=== PATIENT | male | born 1970 ===

== ENCOUNTER 2018-10-12 06:15 | Day surgery (SDC) | payer MEDICARE, OTHER ==
[~2018-10-12] VITALS: Ht 190.5 cm; Wt 129.3 kg
[2018-10-12] VITALS (9 sets, daily range): BP systolic 140–160; BP diastolic 77–91
[~2018-10-12 06:15] MED LIST: ALBUTEROL SULF8.5 GM INH
[2018-10-12] MEDS ORDERED: fentaNYL 100 mcg/2 mL IV ONE (07:00)
[2018-10-12] MEDS ORDERED: Midazolam 2mg/2ml Inj ONE (07:01)
[2018-10-12] MEDS ORDERED: Propofol 200mg/20ml IV ONE (07:01)
[2018-10-12] MEDS ORDERED: NS Irrig 1000ml IRRIG ONE ×2 (07:04→07:50)
--- NOTE | 2018-10-12 07:24 | Consultation ---
History of Present Illness General Date patient seen: Oct 12, 2018 Present Illness HPI 48M referred to me for evaluation of abnormal mass x 3. Patient c/o draining mass on mid upper back, pelvic, and left axilla. States had back left mid cyst with drainage for over 10 years. has had prior infection and recurrs every so often. also for past 1 year has had anterior pelvic abd wall 1cm ulcer with drainage. has been to ED prior for discomfort and purulent drainage from this. also left axilla small 1cm draining cyst. is ready to have them removed. Allergies: Coded Allergies: PENICILLINS (Verified Adverse Reaction, Intermediate, "swells-up"; "can't breath", 10/11/18) Medication History Scheduled PRN Albuterol Sulfate* (Albuterol Sulfate Mdi*), 2 PUFF INH PRN PRN for Shortness of Breath, (Reported) Patient History History Provided By: Patient Healthcare decision maker Resuscitation status Advanced Directive on File Past Medical/Surgical History Past Medical/Surgical History: (1) Palpable mass of lower back (2) Pelvic mass in male (3) Mass of left axilla Review of Systems Review of Symptoms General ROS: no weight loss or fever Psychological ROS: no depression or mood changes, no memory loss Ophthalmic ROS: no visual changes or eye irritation ENT ROS: no nasal congestion, hearing loss, dizziness Allergy and Immunology ROS: no allergic symptoms or urticaria Hematological and Lymphatic ROS: no swollen glands, unusual bleeding or bruising Endocrine ROS: no polyuria, polydipsia, weight changes, temperature intolerance Respiratory ROS: no cough, shortness of breath, or wheezing Cardiovascular ROS: no chest pain or dyspnea on exertion Gastrointestinal ROS: denies abdominal pain, no bright red blood in stool. Musculoskeletal ROS: no myalgias or arthralgias Neurological ROS: no TIA or stroke symptoms Dermatological ROS: no new or changing skin lesions, rashes or pruritis Physical Exam Physical Exam General appearance: alert, cooperative, no distress, appears stated age Head: Normocephalic, without obvious abnormality, atraumatic Eyes: conjunctivae/corneas clear. PERRL, EOM's intact. Fundi benign Throat: Lips, mucosa, and tongue normal. Teeth and gums normal Neck: supple, symmetrical, trachea midline, no adenopathy, thyroid: not enlarged, symmetric, no tenderness/mass/nodules, no carotid bruit and no JVD Lungs: clear to auscultation bilaterally Heart: regular rate and rhythm, S1, S2 normal, no murmur, click, rub or gallop Abdomen: soft, non-tender. Bowel sounds normal. No masses, no organomegaly Extremities: extremities normal, atraumatic, no cyanosis or edema Pulses: 2+ and symmetric Skin: Skin color, texture, turgor normal. No rashes or lesions Neurologic: Grossly normal Last 24 Hour Vital Signs Date Time Temp Pulse Resp B/P (MAP) Pulse Ox O2 Delivery O2 Flow Rate FiO2 10/12/18 06:45 Room Air 10/12/18 06:38 97.8 69 18 157/78 96 Room Air Height (Feet): 6 Height (Inches): 3.00 Weight (Pounds): 285 Assessment/Plan Problem List: (1) Pelvic mass in male ICD Codes: R19.00 - Intra-abdominal and pelvic swelling, mass and lump, unspecified site SNOMED: 94240955 (2) Mass of left axilla ICD Codes: R22.32 - Localized swelling, mass and lump, left upper limb SNOMED: 563648779 (3) Palpable mass of lower back ICD Codes: R22.2 - Localized swelling, mass and lump, trunk SNOMED: 435812204 Status: stable Assessment/Plan: plan for excision of mass x 3 today npo iv fluids pre op abx consent Prem Young Oct 12, 2018 07:24
[2018-10-12] MEDS ORDERED: Vancomycin 1gm vial IVPB ONE (07:25)
--- NOTE | 2018-10-12 07:25 | Pre-Procedure Note/Attestation ---
Pre-Procedure Note/Attestation Complete Prior to Procedure Procedure Narrative: excision of back mass, excision of pelvic anterior abdominal wall mass, excision of left axilla mass Indications for Procedure Pre-Operative Diagnosis: back mass,pelvic anterior abdominal wall mass, left axilla mass Attestation I attest that I discussed the nature of the procedure; its benefits; risks and complications; and alternatives (and the risks and benefits of such alternatives ), prior to the procedure, with the patient (or the patient's legal sales and marketing representative). I attest that, if there was a reasonable possibility of needing a blood transfusion, the patient (or the patient's legal sales and marketing representative) was given the [place] [employer] standardized written summary, pursuant to the [place] Blood Safety Act ([place] Health and Safety Code # 1645, as amended). I attest that I re-evaluated the patient just prior to the surgery and that there has been no change in the patient's H&P, except as documented below: Prem Young Oct 12, 2018 07:25
[2018-10-12] MEDS ORDERED: Sterile Water Irrig 1000ml IRRIG ONE (07:30)
[2018-10-12] MEDS ORDERED: Vancomycin 1 GM in D5W 275 ML IVPB ONE (07:30)
[2018-10-12] MEDS ORDERED: LR 1000ml ONE (07:30)
--- NOTE | 2018-10-12 07:36 | Anethesia Preoperative Eval ---
Anesthesia Pre-op PMH/ROS General Date of Evaluation: Oct 12, 2018 Time of Evaluation: 07:32 Anesthesiologist: Lroi ASA Score: ASA 2 Mallampati Score Class I : Soft palate, uvula, fauces, pillars visible Class II: Soft palate, uvula, fauces visible Class III: Soft palate, base of uvula visible Class IV: Only hard plate visible Mallampati Classification: Class II Surgeon: Denisha Diagnosis: Subcutaneous masses Surgical Procedure: Excision of subcutaneous masses Anesthesia History: none Family History: no anesthesia problems Allergies: Coded Allergies: PENICILLINS (Verified Adverse Reaction, Intermediate, "swells-up"; "can't breath", 10/11/18) Medications: see eMAR Patient NPO?: Yes Past Medical History Cardiovascular: Reports: HTN - borderine; Denies: CAD, [place], valve dz, arrhythmia, other Pulmonary: Denies: asthma, COPD, PIYUSH, other Gastrointestinal/Genitourinary: Reports: GERD; Denies: CRI, ESRD, other Neurologic/Psychiatric: Denies: dementia, CVA, depression/anxiety, TIA, other Endocrine: Reports: DM - borderline H1C up; Denies: hypothyroidism, steroids, other HEENT: Denies: cataract (L), cataract (R), glaucoma, [place] (L), [place] (R), other Hematology/Immune: Denies: anemia, DVT, bleeding disorder, other Musculoskeletal/Integumentary: Denies: OA, RA, DJD, DDD, edema, other Other: obesity PMH Narrative: as above PSxH Narrative: Skin graft L hand Anesthesia Pre-op Phys. Exam Physician Exam Last Vital Signs Date Time Temp Pulse Resp B/P (MAP) Pulse Ox O2 Delivery O2 Flow Rate FiO2 10/12/18 06:45 Room Air 10/12/18 06:38 97.8 69 18 157/78 96 Constitutional: NAD Neurologic: CN 2-12 intact Cardiovascular: RRR, no M/R/G Respiratory: CTA Gastrointestinal: S/NT/ND Airway Exam Mallampati Score: Class II MO: full Neck: flesible ROM: full Teeth: missing Dentures: no upper, no lower Anesthesia Pre-op A/P Labs see chart Studies Pre-op Studies: EKG - NS Risk Assessment & Plan Assessment: ASA 2 Plan: MAC Status Change Before Surgery: No Pre-Antibiotics Drug: Vancomycin 1gr. Given Within 1 Hr of Incision: Yes Time Given: 07:56 Pascual Sandoval MD Oct 12, 2018 07:36
[2018-10-12] MEDS ORDERED: LR 1000ml 1,000 ML IVLG SCH (08:11)
[2018-10-12] MEDS ORDERED: Ketorolac 30mg Inj IV PRN (08:15)
[2018-10-12] MEDS ORDERED: Meperidine 50mg/ml Inj(FOR RIGORS ONLY) IV PRN (08:15)
[2018-10-12] MEDS ORDERED: Bacitracin Oint 15gm Tube TOPIC ONE (08:31)
--- NOTE | 2018-10-12 09:16 | Brief Operative Note ---
Immediate Post Operative Note Operative Note Pre-op Diagnosis: back mass,pelvic anterior abdominal wall mass, left axilla mass Procedure: excision of mass x 3 with adjacent tissue transfer for complex closure Post-op Diagnosis: same as pre-op Surgeon: jessica Anesthesiologist: aleksandra Anesthesia: local, MAC Specimen: yes Complications: none Condition: stable Fluids: see records Estimated Blood Loss: minimal Drains: none Implant(s) used?: No Prem Young Oct 12, 2018 09:16
--- NOTE | 2018-10-12 09:19 | Immediate Post-Op Evaluation ---
Immediate Post-Op Evalulation Immediate Post-Op Evalulation Procedure: excision of subcutaneous masses brandan, lower abdomen, L lucy Date of Evaluation: Oct 12, 2018 Time of Evaluation: 09:18 IV Fluids: 800 Blood Products: none Estimated Blood Loss: min Urinary Output: none Blood Pressure Systolic: 153 Blood Pressure Diastolic: 84 Pulse Rate: 62 Respiratory Rate: 20 O2 Sat by Pulse Oximetry: 98 Temperature (Fahrenheit): 97.6 Pain Score (1-10): 1 Nausea: No Vomiting: No Complications none Patient Status: awake, patent, none Hydration Status: adequate Pascual Sandoval MD Oct 12, 2018 09:19
[2018-10-12] MEDS ORDERED: HYDROcodone/Acetamin 5/325 tab ORAL PRN (09:30)
[2018-10-12] MEDS ORDERED: Tylenol #3 tab (300mg/30mg) ORAL PRN (09:30)
[2018-10-12] MEDS ORDERED: HYDROmorphone 1mg/ml Carpuject SUBQ PRN (09:30)
[2018-10-12] MEDS ORDERED: D5 1/2NS 1,000 ML IV SCH (12:00)
--- NOTE | 2018-10-12 16:30 | Operative Note - Dictated ---
DATE OF OPERATION: 10/12/2018 PREOPERATIVE DIAGNOSES: 1. Left mid back 3 cm x 3 cm mass. 2. Pelvic anterior abdominal wall mass 4 cm x 2 cm. 3. Left axillary mass 2 cm x 2 cm. POSTOPERATIVE DIAGNOSES: 1. Left mid back 3 cm x 3 cm mass. 2. Pelvic anterior abdominal wall mass 4 cm x 2 cm. 3. Left axillary mass 2 cm x 2 cm. OPERATION PERFORMED: 1. Excision of left mid back mass 3 cm x 3 cm x 3 cm with localized adjacent tissue transfer with use of flaps to close the defect. 2. Pelvic anterior abdominal wall mass excision 4 cm x 2 cm x 2 cm with localized adjacent tissue transfer with use of flaps to close defect. 3. Excision of left axillary mass 2 cm x 2 cm x 2 cm with localized adjacent tissue transfer. Use of flaps for closure of defect. ATTENDING SURGEON: Prem Young M.D. OPTICAL LATHE OPERATOR: None. ANESTHESIOLOGIST: Pascual Sandoval M.D. ANESTHESIA: Local plus MAC. SPECIMENS: Yes x3 as above. COMPLICATIONS: None. DRAINS: None. COUNTS: Sponge and needle count correct x2. WOUND CLASSIFICATION: Class 1. ANTIBIOTICS: Vancomycin 1 g given 1 hour prior to cut time. IMPLANTS: None. INDICATIONS FOR PROCEDURE: This is a 48-year-old male who was referred to my office for evaluation of multiple masses that have been draining for sometime now. The patient states that he has had a midback mass for greater than 10 years that has intermittently been infected throughout the years and currently is causing him discomfort and drains intermittently. He states that he has to drain it himself occasionally and requests excision. Furthermore, the patient was identified to have an anterior abdominal wall pelvic right side ulceration with drainage that he said has been going on for some time now as well as a left axillary mass that has drainage. All 3 cause him discomfort, social anxiety, and have been infected in the past with drainage and therefore excision is indicated and recommended. Risks, benefits, and alternatives were discussed in detail with the patient including potential risk for infection at all wound sites and the patient expressed understanding and consented to surgery. OPERATIVE NOTE: The patient was scheduled for surgery on 10/12/2018. The patient was taken to the operating room and placed on the operating table in the prone position. The mid back was prepped and draped in standard surgical fashion. Local anesthetic was infiltrated for the patient's comfort. MAC sedation was given by the anesthesiologist for the patient's comfort as well. The area of the cystic mass was identified and an elliptical incision was made around the mass. The mass was excised in whole including its capsule and sent to pathology for review. Mass likely noted to be a sebaceous cyst. Following this, the wound bed was irrigated and cleansed. Given the size of the defect and location, adjacent tissue transfer was necessary for appropriate closure. The localized tissue in the superior and lateral aspect were mobilized using electrocautery and flapped over to the side of the defect and reapproximated using 3-0 Vicryl sutures. The skin incision was then closed in a two-layer fashion beginning with a 3-0 Vicryl followed by 4-0 Monocryl subcuticular suture. Following this, the patient was placed in the supine position and the left axilla and lower pelvic region prepped and draped in the standard surgical fashion. In a similar fashion, an elliptical incision was made around the draining ulcer wound in the right lower anterior abdominal wall pelvis area. Elliptical incision was made and carried through the dermis to the subcutaneous tissue with electrocautery. The draining defect was noted to be tunneling inferiorly and tunneling tract was completely excised. Once the lesion was removed, it was sent to pathology for review. The remaining wound bed was irrigated and suctioned. Local anesthetic was infiltrated. Then given the location and size, adjacent tissue transfer was necessary for appropriate closure and superior and medial flaps and tissue remained brought into the defect site and reapproximated using 3-0 Vicryl sutures. The skin incision was then reapproximated using 3-0 Vicryl dermal sutures followed by 4-0 Monocryl subcuticular running suture. Following this, attention was turned to the left axilla. Local anesthetic was infiltrated and an elliptical incision was made around the mass and carried down to subcutaneous tissue with electrocautery and the mass excised in full. This is noted to be likely dermal inclusion cyst and hair follicles were identified as well within the draining sinus. Once excised in whole, hemostasis was obtained with electrocautery and the wound bed was irrigated and cleansed and again for appropriate closure and subcutaneous tissue transfer was performed by mobilizing the medial tissue for flap closure over the defect site and reapproximating with 3-0 Vicryl sutures. The remaining skin incisions were reapproximated using 3-0 Vicryl dermal sutures followed by 4-0 Monocryl subcuticular running suture. The patient tolerated the procedure well. All wound sites were cleansed. Dermabond and Steri-Strips were applied. The patient tolerated the procedure well, was taken to the postanesthetic care unit in stable condition for planned discharge today. Prem Young M.D. DR: RHODA JOB#: [id number] CC:
[2018-10-13 08:52] VITALS: BP 142/56
--- NOTE | 2018-10-13 08:52 | 48 Hour Post Anesthesia Eval ---
Post Anesthesia Evaluation Procedure: Excision of subcutaneous masses back, lower abdomen, L keyylla Date of Evaluation: Oct 12, 2018 Time of Evaluation: 11:40 Blood Pressure Systolic: 142 0: 56 Pulse Rate: 72 Respiratory Rate: 20 Temperature (Fahrenheit): 97.6 O2 Sat by Pulse Oximetry: 98 Airway: patent Nausea: No Vomiting: No Pain Intensity: 2 Hydration Status: adequate Cardiopulmonary Status: stable Mental Status/LOC: patient returned to baseline Follow-up Care/Observations: n/a Post-Anesthesia Complications: none Follow-up care needed: ready to discharge Pascual Sandoval MD Oct 13, 2018 08:52
== END 2018-10-12 11:30 | disposition home or self-care (01) ==
LOC: SUR 06:15
DX: L72.0 Epidermal cyst (principal); R19.00 Intra-abdominal and pelvic swelling, mass and lump, unspecified site; Z88.0 Allergy status to penicillin; R22.32 Localized swelling, mass and lump, left upper limb; I10 Essential (primary) hypertension; K21.9 Gastro-esophageal reflux disease without esophagitis; E11.9 Type 2 diabetes mellitus without complications
CPT/HCPCS: 14001; 14040; J1885; J2250; J2704; J3010; J3370; 94003; 94150